=== PATIENT | female | born 1975 | race Asian ===

== ENCOUNTER 2021-03-30 07:42 | Outpatient (CLI) | payer OTHER ==
[~2021-03-30] VITALS: Ht 162.6 cm; Wt 137.9 kg
== END 2021-03-30 19:12 | disposition home or self-care (01) ==
LOC: DIABINF 07:42
PROVIDERS: ATTEND Internal Medicine Endocrinology, Diabetes & Metabolism
DX: E11.65 Type 2 diabetes mellitus with hyperglycemia (principal); E78.2 Mixed hyperlipidemia; I10 Essential (primary) hypertension; N18.9 Chronic kidney disease, unspecified; K21.9 Gastro-esophageal reflux disease without esophagitis; E55.9 Vitamin D deficiency, unspecified; E66.01 Morbid (severe) obesity due to excess calories; Z68.43 Body mass index [BMI] 50.0-59.9, adult; R53.83 Other fatigue
CPT/HCPCS: 82948; 96365; 96366; 96521; J1815; J1817

== ENCOUNTER 2021-03-31 07:45 | Outpatient (CLI) | payer OTHER ==
[~2021-03-31] VITALS: Ht 162.6 cm; Wt 140.6 kg
== END 2021-03-31 22:42 | disposition home or self-care (01) ==
LOC: DIABINF 07:45
PROVIDERS: ATTEND Internal Medicine Endocrinology, Diabetes & Metabolism
DX: E11.65 Type 2 diabetes mellitus with hyperglycemia (principal); E78.2 Mixed hyperlipidemia; I10 Essential (primary) hypertension; N18.9 Chronic kidney disease, unspecified; K21.9 Gastro-esophageal reflux disease without esophagitis; E55.9 Vitamin D deficiency, unspecified; E66.01 Morbid (severe) obesity due to excess calories; Z68.43 Body mass index [BMI] 50.0-59.9, adult; R53.83 Other fatigue
CPT/HCPCS: 82948; 96365; 96521; J1815; J1817

== ENCOUNTER 2021-04-06 07:34 | Outpatient (CLI) | payer OTHER ==
[~2021-04-06] VITALS: Ht 162.6 cm; Wt 140.6 kg
== END 2021-04-06 22:42 | disposition home or self-care (01) ==
LOC: DIABINF 07:34
PROVIDERS: ATTEND Internal Medicine Endocrinology, Diabetes & Metabolism
DX: E11.65 Type 2 diabetes mellitus with hyperglycemia (principal); E78.2 Mixed hyperlipidemia; I10 Essential (primary) hypertension; N18.2 Chronic kidney disease, stage 2 (mild); K21.9 Gastro-esophageal reflux disease without esophagitis; E55.9 Vitamin D deficiency, unspecified; E66.01 Morbid (severe) obesity due to excess calories; Z68.43 Body mass index [BMI] 50.0-59.9, adult; R53.83 Other fatigue
CPT/HCPCS: 82948; 96365; 96366; 96521; J1815; J1817

== ENCOUNTER 2021-04-13 07:25 | Outpatient (CLI) | payer OTHER ==
[~2021-04-13] VITALS: Ht 162.6 cm; Wt 140.6 kg
== END 2021-04-13 22:38 | disposition home or self-care (01) ==
LOC: DIABINF 07:25
PROVIDERS: ATTEND Internal Medicine Endocrinology, Diabetes & Metabolism
DX: E11.65 Type 2 diabetes mellitus with hyperglycemia (principal); E78.2 Mixed hyperlipidemia; I10 Essential (primary) hypertension; N18.2 Chronic kidney disease, stage 2 (mild); K21.9 Gastro-esophageal reflux disease without esophagitis; E55.9 Vitamin D deficiency, unspecified; E66.01 Morbid (severe) obesity due to excess calories; Z68.43 Body mass index [BMI] 50.0-59.9, adult; R53.82 Chronic fatigue, unspecified
CPT/HCPCS: 82948; 96365; 96366; 96521; J1815; J1817

== ENCOUNTER 2021-04-14 07:32 | Outpatient (CLI) | payer OTHER ==
[~2021-04-14] VITALS: Ht 162.6 cm; Wt 139.3 kg
== END 2021-04-14 18:55 | disposition home or self-care (01) ==
LOC: DIABINF 07:32
PROVIDERS: ATTEND Internal Medicine Endocrinology, Diabetes & Metabolism
DX: E11.65 Type 2 diabetes mellitus with hyperglycemia (principal); E78.2 Mixed hyperlipidemia; I10 Essential (primary) hypertension; N18.2 Chronic kidney disease, stage 2 (mild); K21.9 Gastro-esophageal reflux disease without esophagitis; E55.9 Vitamin D deficiency, unspecified; E66.01 Morbid (severe) obesity due to excess calories; Z68.43 Body mass index [BMI] 50.0-59.9, adult; R53.82 Chronic fatigue, unspecified
CPT/HCPCS: 82948; 96365; 96366; 96521; J1815; J1817

== ENCOUNTER 2021-04-20 07:31 | Outpatient (CLI) | payer OTHER ==
[~2021-04-20] VITALS: Ht 162.6 cm; Wt 140.6 kg
== END 2021-04-20 11:30 | disposition home or self-care (01) ==
LOC: DIABINF 07:31
PROVIDERS: ATTEND Internal Medicine Endocrinology, Diabetes & Metabolism
DX: E11.65 Type 2 diabetes mellitus with hyperglycemia (principal); I10 Essential (primary) hypertension; E78.2 Mixed hyperlipidemia; K21.9 Gastro-esophageal reflux disease without esophagitis; E66.01 Morbid (severe) obesity due to excess calories; Z68.43 Body mass index [BMI] 50.0-59.9, adult; N18.9 Chronic kidney disease, unspecified; R53.83 Other fatigue
CPT/HCPCS: 82948; 96365; 96366; 96521; J1815; J1817

== ENCOUNTER 2021-04-21 07:26 | Outpatient (CLI) | payer OTHER ==
[~2021-04-21] VITALS: Ht 162.6 cm; Wt 139.3 kg
== END 2021-04-21 11:30 | disposition home or self-care (01) ==
LOC: DIABINF 07:26
PROVIDERS: ATTEND Internal Medicine Endocrinology, Diabetes & Metabolism
DX: E11.65 Type 2 diabetes mellitus with hyperglycemia (principal); I10 Essential (primary) hypertension; E78.2 Mixed hyperlipidemia; E55.9 Vitamin D deficiency, unspecified; K21.9 Gastro-esophageal reflux disease without esophagitis; E66.01 Morbid (severe) obesity due to excess calories; Z68.43 Body mass index [BMI] 50.0-59.9, adult; N18.9 Chronic kidney disease, unspecified
CPT/HCPCS: 82948; 96365; 96366; 96521; J1815; J1817

== ENCOUNTER 2021-04-28 07:38 | Outpatient (CLI) | payer OTHER | END 2021-04-28 11:30 | disposition home or self-care (01) | LOC: DIABINF 07:38 | PROVIDERS: ATTEND Nurse Practitioner | DX: E11.65 Type 2 diabetes mellitus with hyperglycemia (principal); N18.9 Chronic kidney disease, unspecified; E78.00 Pure hypercholesterolemia, unspecified; K21.9 Gastro-esophageal reflux disease without esophagitis; E55.9 Vitamin D deficiency, unspecified; E66.8 Other obesity; Z68.43 Body mass index [BMI] 50.0-59.9, adult | CPT/HCPCS: 82948; 96365; 96366; 96521; J1817 ==

== ENCOUNTER 2021-05-04 07:30 | Outpatient (CLI) | payer OTHER ==
[~2021-05-04] VITALS: Ht 162.6 cm; Wt 140.6 kg
== END 2021-05-04 11:30 | disposition home or self-care (01) ==
LOC: DIABINF 07:30
PROVIDERS: ATTEND Internal Medicine Endocrinology, Diabetes & Metabolism
DX: E11.65 Type 2 diabetes mellitus with hyperglycemia (principal); E78.2 Mixed hyperlipidemia; I10 Essential (primary) hypertension; N18.2 Chronic kidney disease, stage 2 (mild); K21.9 Gastro-esophageal reflux disease without esophagitis; E55.9 Vitamin D deficiency, unspecified; E66.01 Morbid (severe) obesity due to excess calories; Z68.43 Body mass index [BMI] 50.0-59.9, adult; R53.82 Chronic fatigue, unspecified
CPT/HCPCS: 82948; 96365; 96366; 96521; J1815; J1817

== ENCOUNTER 2021-05-04 13:56 | Outpatient (CLI) | payer OTHER | END 2021-05-04 23:59 | disposition home or self-care (01) | LOC: MRI 13:56 | PROVIDERS: ATTEND Physician Assistant | DX: M25.512 Pain in left shoulder (principal) ==

== ENCOUNTER 2021-05-11 07:32 | Outpatient (CLI) | payer OTHER ==
[~2021-05-11] VITALS: Ht 162.6 cm; Wt 140.6 kg
== END 2021-05-11 19:40 | disposition home or self-care (01) ==
LOC: DIABINF 07:32
PROVIDERS: ATTEND Nurse Practitioner
DX: E11.65 Type 2 diabetes mellitus with hyperglycemia (principal); I10 Essential (primary) hypertension; N18.2 Chronic kidney disease, stage 2 (mild); K21.9 Gastro-esophageal reflux disease without esophagitis; E66.01 Morbid (severe) obesity due to excess calories; Z68.43 Body mass index [BMI] 50.0-59.9, adult; E78.00 Pure hypercholesterolemia, unspecified
CPT/HCPCS: 82948; 96365; 96366; 96521; J1815; J1817

== ENCOUNTER 2021-05-18 07:46 | Outpatient (CLI) | payer OTHER ==
[~2021-05-18] VITALS: Ht 162.6 cm; Wt 140.6 kg
== END 2021-05-18 19:05 | disposition home or self-care (01) ==
LOC: DIABINF 07:46
PROVIDERS: ATTEND Nurse Practitioner
DX: E11.65 Type 2 diabetes mellitus with hyperglycemia (principal); I10 Essential (primary) hypertension; N18.2 Chronic kidney disease, stage 2 (mild); K21.9 Gastro-esophageal reflux disease without esophagitis; E66.01 Morbid (severe) obesity due to excess calories; Z68.43 Body mass index [BMI] 50.0-59.9, adult; E78.00 Pure hypercholesterolemia, unspecified
CPT/HCPCS: 82948; 96365; 96366; 96521; J1815; J1817

== ENCOUNTER 2021-05-25 07:45 | Outpatient (CLI) | payer OTHER ==
[~2021-05-25] VITALS: Ht 162.6 cm; Wt 140.6 kg
== END 2021-05-25 20:58 | disposition home or self-care (01) ==
LOC: DIABINF 07:45
PROVIDERS: ATTEND Nurse Practitioner
DX: E11.65 Type 2 diabetes mellitus with hyperglycemia (principal); I10 Essential (primary) hypertension; N18.2 Chronic kidney disease, stage 2 (mild); K21.9 Gastro-esophageal reflux disease without esophagitis; E66.01 Morbid (severe) obesity due to excess calories; Z68.43 Body mass index [BMI] 50.0-59.9, adult; E78.00 Pure hypercholesterolemia, unspecified
CPT/HCPCS: 82948; 96365; 96366; 96521; J1815; J1817

== ENCOUNTER 2021-05-25 10:30 | Outpatient (CLI) | payer OTHER ==
[2021-05-25 11:02] LABS: POTASSIUM 4.4 mmol/L (3.6-5.2)
== END 2021-05-25 21:03 | disposition home or self-care (01) ==
LOC: LABW 10:30
PROVIDERS: ATTEND Nurse Practitioner
DX: I10 Essential (primary) hypertension (principal); E11.9 Type 2 diabetes mellitus without complications
CPT/HCPCS: 36415; 80053

== ENCOUNTER 2021-06-01 07:50 | Outpatient (CLI) | payer OTHER ==
[~2021-06-01] VITALS: Ht 162.6 cm; Wt 140.6 kg
== END 2021-06-01 22:01 | disposition home or self-care (01) ==
LOC: DIABINF 07:50
PROVIDERS: ATTEND Nurse Practitioner
DX: E11.65 Type 2 diabetes mellitus with hyperglycemia (principal); N17.8 Other acute kidney failure; N18.9 Chronic kidney disease, unspecified; I10 Essential (primary) hypertension; E78.00 Pure hypercholesterolemia, unspecified; K21.9 Gastro-esophageal reflux disease without esophagitis; E55.9 Vitamin D deficiency, unspecified; E66.8 Other obesity; Z68.43 Body mass index [BMI] 50.0-59.9, adult; E87.5 Hyperkalemia
CPT/HCPCS: 82948; 96365; 96366; 96521; J1815; J1817

== ENCOUNTER 2021-06-09 07:43 | Outpatient (CLI) | payer OTHER ==
[~2021-06-09] VITALS: Ht 162.6 cm; Wt 140.6 kg
== END 2021-06-09 19:55 | disposition home or self-care (01) ==
LOC: DIABINF 07:43
PROVIDERS: ATTEND Nurse Practitioner
DX: E11.65 Type 2 diabetes mellitus with hyperglycemia (principal); N18.9 Chronic kidney disease, unspecified; I10 Essential (primary) hypertension; E78.00 Pure hypercholesterolemia, unspecified; K21.9 Gastro-esophageal reflux disease without esophagitis; E55.9 Vitamin D deficiency, unspecified; E66.8 Other obesity; Z68.43 Body mass index [BMI] 50.0-59.9, adult
CPT/HCPCS: 82948; 96365; 96366; 96521; J1815; J1817

== ENCOUNTER 2021-06-15 07:55 | Outpatient (CLI) | payer OTHER ==
[~2021-06-15] VITALS: Ht 162.6 cm; Wt 139.3 kg
== END 2021-06-15 22:32 | disposition home or self-care (01) ==
LOC: DIABINF 07:55
PROVIDERS: ATTEND Nurse Practitioner
DX: E11.65 Type 2 diabetes mellitus with hyperglycemia (principal); N18.9 Chronic kidney disease, unspecified; I10 Essential (primary) hypertension; E78.00 Pure hypercholesterolemia, unspecified; K21.9 Gastro-esophageal reflux disease without esophagitis; E55.9 Vitamin D deficiency, unspecified; E66.8 Other obesity; Z68.43 Body mass index [BMI] 50.0-59.9, adult; E87.5 Hyperkalemia
CPT/HCPCS: 82948; 96365; 96366; 96521; J1815; J1817

== ENCOUNTER 2021-07-05 14:26 | Outpatient (CLI) | payer OTHER ==
[2021-07-05 15:05] LABS: PLATELET COUNT 339 K/uL (152-353)
[2021-07-05 15:34] LABS: POTASSIUM 4.2 mmol/L (3.6-5.2); SODIUM 139 mmol/L (136-145)
== END 2021-07-05 23:00 | disposition home or self-care (01) ==
LOC: RAD 14:26
PROVIDERS: ATTEND Nurse Practitioner Family
DX: R05 Cough (principal); R60.9 Edema, unspecified; R06.02 Shortness of breath
CPT/HCPCS: 36415; 80053; 82553; 83880; 84484; 85027; 93005

== ENCOUNTER 2021-08-15 09:39 | Outpatient (CLI) | payer OTHER ==
[2021-08-15 09:56] LABS: PLATELET COUNT 386 K/uL (152-353)
[2021-08-15 10:12] LABS: POTASSIUM 4.4 mmol/L (3.6-5.2)
== END 2021-08-15 19:35 | disposition home or self-care (01) ==
LOC: LABW 09:39
PROVIDERS: ATTEND Nurse Practitioner Family
DX: E11.9 Type 2 diabetes mellitus without complications (principal); E78.5 Hyperlipidemia, unspecified; D64.9 Anemia, unspecified; N18.30 Chronic kidney disease, stage 3 unspecified; I12.9 Hypertensive chronic kidney disease with stage 1 through stage 4 chronic kidney disease, or unspecified chronic kidney disease
CPT/HCPCS: 36415; 80053; 80061; 83036; 85027

== ENCOUNTER 2021-11-15 11:02 | Outpatient (CLI) | payer OTHER ==
[2021-11-15 11:43] LABS: PLATELET COUNT 277 K/uL (152-353)
[2021-11-15 12:03] LABS: POTASSIUM 4.3 mmol/L (3.6-5.2)
== END 2021-11-15 18:55 | disposition home or self-care (01) ==
LOC: LABW 11:02
PROVIDERS: ATTEND Nurse Practitioner Family
DX: E11.9 Type 2 diabetes mellitus without complications (principal); E78.5 Hyperlipidemia, unspecified; I10 Essential (primary) hypertension; D64.9 Anemia, unspecified; N18.30 Chronic kidney disease, stage 3 unspecified; E66.01 Morbid (severe) obesity due to excess calories
CPT/HCPCS: 36415; 80053; 80061; 81000; 82043; 82570; 83036; 84439; 84443; 85027

== ENCOUNTER 2022-01-19 09:52 | Outpatient (CLI) | payer OTHER | END 2022-01-19 19:34 | disposition home or self-care (01) | LOC: RESP 09:52 | PROVIDERS: ATTEND Specialist | DX: R00.2 Palpitations (principal); N18.9 Chronic kidney disease, unspecified; E11.9 Type 2 diabetes mellitus without complications; R07.9 Chest pain, unspecified; I12.9 Hypertensive chronic kidney disease with stage 1 through stage 4 chronic kidney disease, or unspecified chronic kidney disease | CPT/HCPCS: 93225 ==

== ENCOUNTER 2022-01-23 08:06 | Outpatient (CLI) | payer OTHER ==
[~2022-01-23] VITALS: Ht 162.6 cm; Wt 143.8 kg
== END 2022-01-23 18:53 | disposition home or self-care (01) ==
LOC: NM 08:06
PROVIDERS: ATTEND Specialist
DX: R07.9 Chest pain, unspecified (principal)
CPT/HCPCS: A9500; J2785

== ENCOUNTER 2022-02-23 14:53 | Outpatient (CLI) | payer OTHER ==
[2022-02-23 15:27] LABS: PLATELET COUNT 321 K/uL (152-353)
[2022-02-23 15:29] LABS: POTASSIUM 5.1 mmol/L (3.6-5.2)
== END 2022-02-23 21:01 | disposition home or self-care (01) ==
LOC: LABW 14:53
PROVIDERS: ATTEND Specialist
DX: R94.39 Abnormal result of other cardiovascular function study (principal)
CPT/HCPCS: 36415; 80048; 85027